=== PATIENT | female | born 1975 ===

== ENCOUNTER 2016-09-25 08:17 | Outpatient (CLI) | payer BC ==
--- NOTE | 2016-09-25 09:12 | Mammography Report ---
Screening mammogram: Routine views demonstrate a heterogeneously dense fibroglandular pattern bilaterally. There are questionable areas of architectural change in the upper outer right breast as well as inferiorly on the left. The findings otherwise appear generally unremarkable. CAD used. Impression: Bilateral architectural changes. Recommendation: The patient's prior studies are being requested for comparison. If these cannot be obtained additional imaging of both areas will be required. Please wait for comparison report before additional imaging. BI-RADS CATEGORY: 0 = Needs additional imaging evaluation ACR BI-RADS MAMMOGRAPHIC CODES: 0 = Needs additional imaging evaluation; 1 = Negative; 2 = Benign; 3 = Probably benign; 4 = Suspicious; 5 = Malignant; 6 = Known biopsy-proven malignancy COMMENT: 1. Dense breast tissue, i.e., adenosis, fibrocystic changes, etc., may obscure an underlying neoplasm. 2. Approximately 10% of cancers are not detected with mammography. 3. A negative mammography report should not delay biopsy if a clinically suspicious mass is present.
== END 2016-09-25 08:18 | disposition home or self-care (01) ==
LOC: SPVWC 08:17
PROVIDERS: ATTEND Internal Medicine
DX: Z12.31 Encounter for screening mammogram for malignant neoplasm of breast (principal)
CPT/HCPCS: 77067; G0202